=== PATIENT | female | born 1935 | race Asian ===

== ENCOUNTER 2018-03-27 14:00 | Inpatient (IN) | payer MEDICARE ==
[~2018-03-27] VITALS: Ht 152.4 cm; Wt 50.3 kg
[~2018-03-27 14:00] MED LIST: AMLO5TAB2 PO; ASPI-555 PO; ATOR20TA65 PO; CHOL200074 PO; CLOP75TA32 PO; CYAN200018 PO; ESOM40CA54 PO; LEVO25TA4 PO; METO5TAB2 PO; POTA2TAB18 PO; PYRI100T2 PO; VIT1CAPS47 PO
[2018-03-27] MEDS ORDERED: ONDANSETRON HCL MDV 20ML 2 MG/ML VIAL ONE (14:09)
[2018-03-27] MEDS ORDERED: FENTANYL CITRATE PF 50 MCG/1 ML 2ML VIAL ONE (14:09)
[2018-03-27] MEDS ORDERED: IOPAMIDOL-370 100 ML VIAL IV ONE (14:13)
[2018-03-27] MEDS ORDERED: SODIUM CHLORIDE 0.9% 500ML 500 ML IV ONE (14:19)
[2018-03-27] MEDS ORDERED: HYDROMORPHONE HCL 0.5 MG/0.5 ML ML ONE ×2 (14:48→15:54)
[2018-03-27 15:01] LABS: APPEARANCE,URINE Clear (CLEAR); BILIRUBIN,URINE Negative (NEGATIVE); COLOR,URINE Yellow (YELLOW); GLUCOSE, URINE (UA) Negative (NEGATIVE); KETONES,URINE Negative (NEGATIVE); LEUKOCYTE ESTERASE ,URINE Trace (NEGATIVE); NITRATE,URINE Negative (NEGATIVE); OCCULT BLOOD,URINE Negative (NEGATIVE); PH,URINE 6.5 (5.0-8.0); PROTEIN,URINE Negative (NEGATIVE); UROBILINOGEN,URINE 0.2 mg/dL (0.2-1.0)
[2018-03-27 15:07] LABS: BACTERIA,URINE Many /HPF (None Seen); RBC,URINE None Seen /HPF (0-1); SQUAMOUS EPITHELIAL CELL,UR 0-2 /HPF (0-2)
[2018-03-27 15:22] LABS: BASOPHILS % (AUTO) 0.3 % (0.0-5.0); EOSINOPHILS % (AUTO) 1.3 % (0.0-8.0); HEMATOCRIT 38.6 % (36-48); LYMPHOCYTES % (AUTO) 21.9 % (21.0-51.0); MEAN CORPUSCULAR HEMOGLOBIN 29.2 pg (27.0-33.0); MEAN CORPUSCULAR VOLUME 88.4 fL (79-99); MONOCYTES % (AUTO) 5.1 % (3.0-13.0); NEUTROPHILS % (AUTO) 71.4 % (40.0-77.0); PLATELET COUNT (AUTO) 176 K/uL (130-400); RED BLOOD CELL COUNT(AUTO) 4.37 MIL/uL (4.00-5.50); RED CELL DISTRIBUTION WIDTH 14.4 % (11.0-15.5); WHITE BLOOD COUNT (AUTO) 8.6 K/uL (4.8-10.8)
[2018-03-27 15:32] LABS: CREATININE 0.6 mg/dL (0.5-1.5); POTASSIUM 3.2 mmol/L (3.5-5.1)
[2018-03-27 15:33] LABS: INR 0.96 (0.85-1.15); PARTIAL THROMBOPLASTIN TIME 25.2 SEC (26.3-35.5); PROTHROMBIN TIME 10.1 SEC (9.6-11.6)
[2018-03-27 15:37] LABS: ALBUMIN 3.4 g/dL (3.5-5.0); BILIRUBIN,TOTAL 0.5 mg/dL (0.2-1.0); TOTAL PROTEIN, SERUM 7.5 g/dL (6.0-8.3)
[2018-03-27] MEDS ORDERED: TRAMADOL HCL 50 MG TABLET ONE (20:06)
[2018-03-27 23:50] VITALS: BP 158/77
[2018-03-27] MEDS: ONDANSETRON HCL 4 MG/2 ML VIAL IVP PRN (23:56)
[2018-03-28] MEDS ORDERED: POTASSIUM CHLORIDE 10% ELIXIR 20 MEQ/15 ML UDCUP PO PRN (03:15)
[2018-03-28] MEDS ORDERED: LIDOCAINE HCL-MPF 1% 2ML VIAL IVP PRN (03:15)
[2018-03-28] MEDS ORDERED: POTASSIUM CHLORIDE 20MEQ/100ML 100 ML IV PRN (03:15)
[2018-03-28 04:15] VITALS: BP 154/77
[2018-03-28] MEDS: ONDANSETRON HCL 4 MG/2 ML VIAL IVP PRN (04:34)
[2018-03-28] MEDS: SODIUM CHLORIDE 0.9% 1000ML 1,000 ML IV SCH ×2 (04:57→16:50)
[2018-03-28 05:26] LABS: HEMATOCRIT 38.2 % (36-48); MEAN CORPUSCULAR HEMOGLOBIN 29.7 pg (27.0-33.0); MEAN CORPUSCULAR VOLUME 87.5 fL (79-99); PLATELET COUNT (AUTO) 180 K/uL (130-400); RED BLOOD CELL COUNT(AUTO) 4.37 MIL/uL (4.00-5.50); RED CELL DISTRIBUTION WIDTH 13.7 % (11.0-15.5); WHITE BLOOD COUNT (AUTO) 11.4 K/uL (4.8-10.8)
[2018-03-28 05:30] LABS: CREATININE 0.7 mg/dL (0.5-1.5); POTASSIUM 3.6 mmol/L (3.5-5.1)
[2018-03-28 05:35] LABS: INR 0.95 (0.85-1.15)
[2018-03-28 07:55] VITALS: BP 142/70
[2018-03-28] MEDS: CEFTRIAXONE SODIUM 1 GM IV SCH ×2 (08:57→09:12)
[2018-03-28] MEDS: POTASSIUM CHLORIDE 20 MEQ ERTAB PO PRN ×2 (08:58→09:12)
[2018-03-28] MEDS: ONDANSETRON HCL MDV 20ML 2 MG/ML VIAL IVP PRN (08:59)
[2018-03-28] MEDS ORDERED: PANTOPRAZOLE 40 MG/VIAL IVP SCH (09:00)
[2018-03-28] MEDS ORDERED: CALC1TAB2 PO (10:50)
[2018-03-28] MEDS ORDERED: LOSA25TA21 PO (10:50)
[2018-03-28 11:11] VITALS: BP 145/72
[2018-03-28] MEDS: METOCLOPRAMIDE 10 MG/2 ML VIAL IVP SCH ×2 (11:30→16:50)
[2018-03-28] MEDS: KETOROLAC TROMETHAMINE 15MG/ML IV SCH ×3 (11:32→23:04)
[2018-03-28] MEDS: PROMETHAZINE HCL 25 MG/ML 1ML AMPULE IM PRN (11:32)
[2018-03-28 15:58] VITALS: BP 140/66
[2018-03-28 19:55] VITALS: BP 159/70
[2018-03-28] MEDS: ATORVASTATIN CALCIUM 20 MG TABLET PO SCH (20:23)
[2018-03-28 23:05] VITALS: BP 149/76
[2018-03-29 03:17] VITALS: BP 157/79
[2018-03-29] MEDS: LEVOTHYROXINE 25 MCG TABLET PO SCH (05:31)
[2018-03-29] MEDS ORDERED: KETOROLAC TROMETHAMINE 15MG/ML ONE (05:32)
[2018-03-29] MEDS: KETOROLAC TROMETHAMINE 15MG/ML IV SCH (05:33)
[2018-03-29] MEDS: METOCLOPRAMIDE 10 MG/2 ML VIAL IVP SCH ×4 (07:23→14:57)
[2018-03-29 07:45] VITALS: BP 157/83
[2018-03-29] MEDS ORDERED: ENOXAPARIN SODIUM 30 MG/0.3 ML SQ SCH (09:00)
[2018-03-29] MEDS: PRESERVISION AREDS PO SCH (09:00)
[2018-03-29] MEDS: Losartan Potassium 12.5 MG PO SCH (09:00)
[2018-03-29] MEDS: CEFTRIAXONE SODIUM 1 GM IV SCH (09:32)
[2018-03-29] MEDS: AMLODIPINE BESYLATE 5 MG TAB PO SCH (09:35)
[2018-03-29] MEDS: ASPIRIN 81 MG EC TAB PO SCH (09:35)
[2018-03-29] MEDS: CALCIUM 600 + VITAMIN D 400 TABLET PO SCH (09:35)
[2018-03-29] MEDS: PANTOPRAZOLE SODIUM 40 MG TABLET.DR PO SCH (09:36)
[2018-03-29] MEDS: MORPHINE SULFATE 4 MG/1ML SYG IVP PRN ×2 (10:24→15:52)
[2018-03-29] MEDS: ONDANSETRON HCL MDV 20ML 2 MG/ML VIAL IVP PRN (10:24)
[2018-03-29 11:15] VITALS: BP 128/70
[2018-03-29] MEDS: TRAMADOL HCL 50 MG TABLET PO PRN (14:56)
[2018-03-29] MEDS: PROMETHAZINE HCL 25 MG/ML 1ML AMPULE IM PRN (14:58)
[2018-03-29 16:41] VITALS: BP 120/62
[2018-03-29 20:06] VITALS: BP 144/73
[2018-03-29] MEDS: ATORVASTATIN CALCIUM 20 MG TABLET PO SCH (20:59)
[2018-03-30 00:12] VITALS: BP 145/77
[2018-03-30 04:12] VITALS: BP 156/77
[2018-03-30] MEDS: METOCLOPRAMIDE 10 MG/2 ML VIAL IVP SCH (04:45)
[2018-03-30] MEDS: LEVOTHYROXINE 25 MCG TABLET PO SCH (04:45)
[2018-03-30] MEDS: TRAMADOL HCL 50 MG TABLET PO PRN (04:45)
[2018-03-30 07:30] VITALS: BP 137/83
[2018-03-30] MEDS: DOCUSATE SODIUM 100 MG CAP PO SCH ×2 (08:23→20:58)
[2018-03-30] MEDS: CYCLOBENZAPRINE HCL 10 MG TABLET PO SCH ×2 (08:23→20:58)
[2018-03-30] MEDS: ASPIRIN 81 MG EC TAB PO SCH (08:23)
[2018-03-30] MEDS: PANTOPRAZOLE SODIUM 40 MG TABLET.DR PO SCH (08:23)
[2018-03-30] MEDS: AMLODIPINE BESYLATE 5 MG TAB PO SCH (08:23)
[2018-03-30] MEDS: CALCIUM 600 + VITAMIN D 400 TABLET PO SCH (08:23)
[2018-03-30] MEDS: CEFTRIAXONE SODIUM 1 GM IV SCH (08:23)
[2018-03-30] MEDS: PRESERVISION AREDS PO SCH (08:24)
[2018-03-30] MEDS: Losartan Potassium 12.5 MG PO SCH (08:24)
[2018-03-30] MEDS: ENOXAPARIN SODIUM 40 MG/0.4 ML SYRINGE SQ SCH (08:24)
[2018-03-30] MEDS: POLYETHYLENE GLYCOL 3350 17 GM POWD.PACK PO SCH (08:25)
[2018-03-30] MEDS: ONDANSETRON HCL MDV 20ML 2 MG/ML VIAL IVP PRN (09:13)
[2018-03-30] MEDS: MORPHINE SULFATE 4 MG/1ML SYG IVP PRN (09:13)
[2018-03-30 11:39] VITALS: BP 141/89
[2018-03-30 16:18] VITALS: BP 133/88
[2018-03-30] MEDS: ACETAMINOPHEN 325 MG TAB PO PRN (18:16)
[2018-03-30 20:09] VITALS: BP 118/56
[2018-03-30] MEDS: ATORVASTATIN CALCIUM 20 MG TABLET PO SCH (20:58)
[2018-03-31 00:09] VITALS: BP 109/67
[2018-03-31] MEDS: MORPHINE SULFATE 4 MG/1ML SYG IVP PRN ×2 (03:30→09:29)
[2018-03-31 04:09] VITALS: BP 131/69
[2018-03-31 05:33] LABS: CREATININE 0.7 mg/dL (0.5-1.5); POTASSIUM 3.7 mmol/L (3.5-5.1)
[2018-03-31] MEDS: LEVOTHYROXINE 25 MCG TABLET PO SCH (06:18)
[2018-03-31 07:58] VITALS: BP 159/77
[2018-03-31] MEDS: POLYETHYLENE GLYCOL 3350 17 GM POWD.PACK PO SCH (08:42)
[2018-03-31] MEDS: ONDANSETRON HCL MDV 20ML 2 MG/ML VIAL IVP PRN (08:42)
[2018-03-31] MEDS: CEFTRIAXONE SODIUM 1 GM IV SCH (08:42)
[2018-03-31] MEDS: PANTOPRAZOLE SODIUM 40 MG TABLET.DR PO SCH (08:43)
[2018-03-31] MEDS: TRAMADOL HCL 50 MG TABLET PO PRN (08:43)
[2018-03-31] MEDS: CALCIUM 600 + VITAMIN D 400 TABLET PO SCH (08:43)
[2018-03-31] MEDS: CYCLOBENZAPRINE HCL 10 MG TABLET PO SCH (08:43)
[2018-03-31] MEDS: AMLODIPINE BESYLATE 5 MG TAB PO SCH (08:43)
[2018-03-31] MEDS: ASPIRIN 81 MG EC TAB PO SCH (08:43)
[2018-03-31] MEDS: DOCUSATE SODIUM 100 MG CAP PO SCH ×2 (08:43→19:35)
[2018-03-31] MEDS: POTASSIUM CHLORIDE 20 MEQ ERTAB PO PRN ×2 (08:44→13:10)
[2018-03-31] MEDS: Losartan Potassium 12.5 MG PO SCH (08:44)
[2018-03-31] MEDS: ENOXAPARIN SODIUM 40 MG/0.4 ML SYRINGE SQ SCH (08:45)
[2018-03-31] MEDS: PRESERVISION AREDS PO SCH (08:59)
[2018-03-31] MEDS ORDERED: OMEP40CA37 PO (09:50)
[2018-03-31] MEDS ORDERED: CLOP75TA14 PO (09:50)
[2018-03-31] MEDS ORDERED: PREG75 PO (09:52)
[2018-03-31] MEDS ORDERED: TIZA2TAB4 PO (09:52)
[2018-03-31] MEDS ORDERED: TRAM50TA4 PO (09:56)
[2018-03-31 11:29] VITALS: BP 124/78
[2018-03-31] MEDS: CEPHALEXIN 500 MG CAPSULE PO SCH ×3 (13:11→19:36)
[2018-03-31] MEDS: ACETAMINOPHEN 325 MG TAB PO PRN (13:11)
[2018-03-31] MEDS: PREGABALIN 25 MG CAP PO SCH ×2 (14:00→19:36)
[2018-03-31] MEDS: LACTULOSE 20 GM/30 ML UDCUP PO PRN (15:10)
[2018-03-31 15:54] VITALS: BP 123/76
[2018-03-31] MEDS: TIZANIDINE HCL 2 MG TABLET PO PRN (17:01)
[2018-03-31] MEDS: ATORVASTATIN CALCIUM 20 MG TABLET PO SCH (19:35)
[2018-03-31 20:15] VITALS: BP 102/58
[2018-04-01 00:03] VITALS: BP 134/77
[2018-04-01] MEDS: TRAMADOL HCL 50 MG TABLET PO PRN ×3 (01:09→22:06)
[2018-04-01 04:09] VITALS: BP 105/66
[2018-04-01] MEDS: LEVOTHYROXINE 25 MCG TABLET PO SCH (05:32)
[2018-04-01 07:46] VITALS: BP 153/77
[2018-04-01] MEDS: AMLODIPINE BESYLATE 5 MG TAB PO SCH (08:09)
[2018-04-01] MEDS: PREGABALIN 25 MG CAP PO SCH ×3 (08:09→20:20)
[2018-04-01] MEDS: ONDANSETRON HCL MDV 20ML 2 MG/ML VIAL IVP PRN (08:09)
[2018-04-01] MEDS: ASPIRIN 81 MG EC TAB PO SCH (08:09)
[2018-04-01] MEDS: DOCUSATE SODIUM 100 MG CAP PO SCH ×2 (08:09→20:20)
[2018-04-01] MEDS: CALCIUM 600 + VITAMIN D 400 TABLET PO SCH (08:09)
[2018-04-01] MEDS: PANTOPRAZOLE SODIUM 40 MG TABLET.DR PO SCH (08:09)
[2018-04-01] MEDS: CEPHALEXIN 500 MG CAPSULE PO SCH ×3 (08:09→20:20)
[2018-04-01] MEDS: POLYETHYLENE GLYCOL 3350 17 GM POWD.PACK PO SCH (08:09)
[2018-04-01] MEDS: TIZANIDINE HCL 2 MG TABLET PO PRN ×2 (08:09→16:08)
[2018-04-01] MEDS: ENOXAPARIN SODIUM 40 MG/0.4 ML SYRINGE SQ SCH (08:11)
[2018-04-01] MEDS: PRESERVISION AREDS PO SCH (09:00)
[2018-04-01] MEDS: Losartan Potassium 12.5 MG PO SCH (09:00)
[2018-04-01 12:00] VITALS: BP 100/65
[2018-04-01 16:00] VITALS: BP 149/78
[2018-04-01] MEDS: LACTULOSE 20 GM/30 ML UDCUP PO PRN (16:08)
[2018-04-01 20:08] VITALS: BP 119/70
[2018-04-01] MEDS: ATORVASTATIN CALCIUM 20 MG TABLET PO SCH (20:19)
[2018-04-01] MEDS: ACETAMINOPHEN 325 MG TAB PO PRN (22:06)
[2018-04-02] VITALS (8 sets, daily range): BP systolic 102–140; BP diastolic 55–73
[2018-04-02] MEDS: LACTULOSE 20 GM/30 ML UDCUP PO PRN ×2 (04:23→09:52)
[2018-04-02] MEDS: TIZANIDINE HCL 2 MG TABLET PO PRN (06:02)
[2018-04-02] MEDS: LEVOTHYROXINE 25 MCG TABLET PO SCH (06:02)
[2018-04-02] MEDS: Losartan Potassium 12.5 MG PO SCH (09:00)
[2018-04-02] MEDS: PRESERVISION AREDS PO SCH (09:00)
[2018-04-02] MEDS: AMLODIPINE BESYLATE 5 MG TAB PO SCH (09:00)
[2018-04-02] MEDS: CEPHALEXIN 500 MG CAPSULE PO SCH ×3 (09:51→20:35)
[2018-04-02] MEDS: PANTOPRAZOLE SODIUM 40 MG TABLET.DR PO SCH (09:51)
[2018-04-02] MEDS: ASPIRIN 81 MG EC TAB PO SCH (09:51)
[2018-04-02] MEDS: DOCUSATE SODIUM 100 MG CAP PO SCH ×2 (09:51→20:35)
[2018-04-02] MEDS: PREGABALIN 25 MG CAP PO SCH ×3 (09:51→20:35)
[2018-04-02] MEDS: CALCIUM 600 + VITAMIN D 400 TABLET PO SCH (09:51)
[2018-04-02] MEDS: ENOXAPARIN SODIUM 40 MG/0.4 ML SYRINGE SQ SCH (09:52)
[2018-04-02] MEDS: POLYETHYLENE GLYCOL 3350 17 GM POWD.PACK PO SCH (09:52)
[2018-04-02] MEDS: ACETAMINOPHEN 325 MG TAB PO PRN ×2 (12:09→22:48)
[2018-04-02] MEDS: TRAMADOL HCL 50 MG TABLET PO PRN ×2 (12:09→22:47)
[2018-04-02] MEDS ORDERED: MAGNESIUM CITRATE 296 ML SOLUTION PO PRN (13:00)
[2018-04-02] MEDS ORDERED: LACTULOSE 20 GM/30 ML UDCUP PO SCH (14:00)
[2018-04-02] MEDS: ATORVASTATIN CALCIUM 20 MG TABLET PO SCH (20:35)
[2018-04-03 03:45] VITALS: BP 136/62
[2018-04-03] MEDS: LEVOTHYROXINE 25 MCG TABLET PO SCH (05:50)
[2018-04-03] MEDS: TIZANIDINE HCL 2 MG TABLET PO PRN ×2 (06:50→13:42)
[2018-04-03 07:30] VITALS: BP 111/56
[2018-04-03] MEDS: PRESERVISION AREDS PO SCH (09:00)
[2018-04-03] MEDS: Losartan Potassium 12.5 MG PO SCH (09:00)
[2018-04-03] MEDS: TRAMADOL HCL 50 MG TABLET PO PRN ×2 (09:50→15:15)
[2018-04-03] MEDS: ACETAMINOPHEN 325 MG TAB PO PRN ×3 (09:50→15:15)
[2018-04-03] MEDS: AMLODIPINE BESYLATE 5 MG TAB PO SCH (09:51)
[2018-04-03] MEDS: PREGABALIN 25 MG CAP PO SCH ×3 (09:51→20:05)
[2018-04-03] MEDS: CALCIUM 600 + VITAMIN D 400 TABLET PO SCH (09:51)
[2018-04-03] MEDS: PANTOPRAZOLE SODIUM 40 MG TABLET.DR PO SCH (09:51)
[2018-04-03] MEDS: DOCUSATE SODIUM 100 MG CAP PO SCH ×2 (09:51→20:08)
[2018-04-03] MEDS: ASPIRIN 81 MG EC TAB PO SCH (09:51)
[2018-04-03] MEDS: CEPHALEXIN 500 MG CAPSULE PO SCH ×3 (09:51→20:05)
[2018-04-03] MEDS: POLYETHYLENE GLYCOL 3350 17 GM POWD.PACK PO SCH (09:52)
[2018-04-03] MEDS: ENOXAPARIN SODIUM 40 MG/0.4 ML SYRINGE SQ SCH (09:56)
[2018-04-03 11:00] VITALS: BP 119/57
[2018-04-03] MEDS: ENOXAPARIN SODIUM 30 MG/0.3 ML SQ SCH (11:37)
[2018-04-03] MEDS ORDERED: PREG50 PO (13:53)
[2018-04-03] MEDS ORDERED: CEPH500C2 PO (13:53)
[2018-04-03 16:00] VITALS: BP 96/49
[2018-04-03] MEDS: ATORVASTATIN CALCIUM 20 MG TABLET PO SCH (20:05)
[2018-04-03 20:08] VITALS: BP 106/57
[2018-04-04 00:08] VITALS: BP 116/61
[2018-04-04] MEDS: TRAMADOL HCL 50 MG TABLET PO PRN ×3 (01:12→16:32)
[2018-04-04] MEDS: ACETAMINOPHEN 325 MG TAB PO PRN ×3 (01:13→13:03)
[2018-04-04 04:08] VITALS: BP 111/60
[2018-04-04 04:17] LABS: MEAN CORPUSCULAR HEMOGLOBIN 30.7 pg (27.0-33.0); MEAN CORPUSCULAR HGB CONC 35.4 g/dL (32.0-36.0); MEAN CORPUSCULAR VOLUME 86.5 fL (79-99); NUCLEATED RED BLOOD CELLS 0.1 % (0.0-0.19); PLATELET COUNT (AUTO) 192 K/uL (130-400); RED BLOOD CELL COUNT(AUTO) 3.46 MIL/uL (4.00-5.50); RED CELL DISTRIBUTION WIDTH 13.8 % (11.0-15.5); WHITE BLOOD COUNT (AUTO) 6.3 K/uL (4.8-10.8)
[2018-04-04] MEDS: LEVOTHYROXINE 25 MCG TABLET PO SCH (05:51)
[2018-04-04 08:04] VITALS: BP 146/73
[2018-04-04] MEDS: PRESERVISION AREDS PO SCH (09:00)
[2018-04-04] MEDS: Losartan Potassium 12.5 MG PO SCH (09:00)
[2018-04-04] MEDS: CEPHALEXIN 500 MG CAPSULE PO SCH ×2 (09:38→13:03)
[2018-04-04] MEDS: DOCUSATE SODIUM 100 MG CAP PO SCH (09:39)
[2018-04-04] MEDS: AMLODIPINE BESYLATE 5 MG TAB PO SCH (09:39)
[2018-04-04] MEDS: PANTOPRAZOLE SODIUM 40 MG TABLET.DR PO SCH (09:39)
[2018-04-04] MEDS: ASPIRIN 81 MG EC TAB PO SCH (09:39)
[2018-04-04] MEDS: CALCIUM 600 + VITAMIN D 400 TABLET PO SCH (09:39)
[2018-04-04] MEDS: PREGABALIN 25 MG CAP PO SCH ×2 (09:39→13:03)
[2018-04-04] MEDS: ENOXAPARIN SODIUM 30 MG/0.3 ML SQ SCH (09:40)
[2018-04-04] MEDS: POLYETHYLENE GLYCOL 3350 17 GM POWD.PACK PO SCH (09:40)
[2018-04-04] MEDS ORDERED: ONDANSETRON HCL MDV 20ML 2 MG/ML VIAL IVP PRN (12:00)
[2018-04-04 12:03] VITALS: BP 158/66
[2018-04-04] MEDS ORDERED: ONDANSETRON HCL 4 MG/2 ML VIAL IVP PRN (12:25)
[2018-04-04 15:47] VITALS: BP 136/73
== END 2018-04-04 17:50 | DRG 536 ==
LOC: EDH 14:00 → EDHIP 16:56 → OBSVTOIN 16:56 → 4BH 21:21
PROVIDERS: ADMIT Internal Medicine; ATTEND Internal Medicine
DX: S32.302A Unspecified fracture of left ilium, initial encounter for closed fracture (principal); S32.592A Other specified fracture of left pubis, initial encounter for closed fracture; D68.69 Other thrombophilia; N39.0 Urinary tract infection, site not specified; I12.9 Hypertensive chronic kidney disease with stage 1 through stage 4 chronic kidney disease, or unspecified chronic kidney disease; N18.2 Chronic kidney disease, stage 2 (mild); M81.0 Age-related osteoporosis without current pathological fracture; E55.9 Vitamin D deficiency, unspecified; F32.9 Major depressive disorder, single episode, unspecified; F41.9 Anxiety disorder, unspecified; M54.30 Sciatica, unspecified side; R27.9 Unspecified lack of coordination; E87.6 Hypokalemia; E78.5 Hyperlipidemia, unspecified; E89.0 Postprocedural hypothyroidism; I70.0 Atherosclerosis of aorta; I73.9 Peripheral vascular disease, unspecified; J32.9 Chronic sinusitis, unspecified; K21.9 Gastro-esophageal reflux disease without esophagitis; Z66 Do not resuscitate; W10.9XXA Fall (on) (from) unspecified stairs and steps, initial encounter; Z79.82 Long term (current) use of aspirin; Z79.899 Other long term (current) drug therapy; Z86.010 Personal history of colon polyps; Z87.891 Personal history of nicotine dependence; Y93.89 Activity, other specified; Y92.89 Other specified places as the place of occurrence of the external cause; Y99.8 Other external cause status; Z88.8 Allergy status to other drugs, medicaments and biological substances; Z82.49 Family history of ischemic heart disease and other diseases of the circulatory system
CPT/HCPCS: 36415; 70450; 71260; 72125; 74177; 80048; 80053; 81001; 84132; 85025; 85027; 85610; 85730; 86850; 86900; 86901; 93005; 97039; A4218; A4344; C9113; J0696; J1170; J1650; J1885; J2270; J2405; J2550; J2765; J3010; J7030; J7040; Q9967

== ENCOUNTER → 2019-01-12 | Outpatient (CLI) | payer MEDICARE ==
[~2019-01-12] MED LIST changes: -AMLO5TAB2 PO; +AMLO5TAB9 PO; +CALC1TAB2 PO; +CEPH500C2 PO; -CHOL200074 PO; +CLOP75TA14 PO; -CLOP75TA32 PO; -CYAN200018 PO; -ESOM40CA54 PO; +LOSA25TA41 PO; -METO5TAB2 PO; +OMEP40CA37 PO; -POTA2TAB18 PO; +PREG50 PO; -PYRI100T2 PO; +TIZA2TAB4 PO; +TRAM50TA4 PO
== END | disposition home or self-care (01) ==
LOC: RAH 09:07
PROVIDERS: ATTEND Internal Medicine
DX: I10 Essential (primary) hypertension (principal); I70.0 Atherosclerosis of aorta; M47.815 Spondylosis without myelopathy or radiculopathy, thoracolumbar region
CPT/HCPCS: 71046